=== PATIENT | male | born 1940 | race Caucasian/White ===

== ENCOUNTER 2018-01-17 06:39 | Day surgery (SDC) | payer MEDICARE, SELFPAY ==
[2018-01-16 08:18] VITALS: BP 156/76; PULSE 66; RESP 16; TEMP 36.6; O2SAT 96; BMI 30.2
[2018-01-17] VITALS (7 sets, daily range): BP systolic 141–193; BP diastolic 75–109; PULSE 64–87; RESP 16–20; TEMP 36.4–37.1; O2SAT 94–99; BMI 30.2
[2018-01-17] MEDS: Cefazolin 2 GM in 0.9% Normal Saline 100 ML IV (08:50)
--- NOTE | 2018-01-17 08:50 | BLB_PTH ---
PATIENT: JONY MCKEON [place] [facility] [id number] AGE/SX: 77/M ROOM: RE01/17/[address]: Dr. Ramses You MD : 1940 BED: DIS: 01/17/2018 SPEC #: [id number] RECD: 01/17/18 12:07 STATUS: OLU REMartha #: [id number] ABBY: 01/17/18 08:[address]: Ramses You DEPT: SURGICAL PATHOLOGY RECD BY: Leonard Brown ENTERED: 01/17/18 12:35 SP TYPE: TURB OTHR DR: Dr. Margaret Almendarez MD Tissues: Urinary bladder, NOS Procedures: Surgery Specimen Level V HEADER OPERATION: Transurethral resection bladder, Olympus PRE-OP DIAGNOSIS: Gross hematuria, bladder tumor TISSUE SUBMITTED: Bladder tumor MICROSCOPIC DIAGNOSIS Bladder tumor, TUR: Urothelial carcinoma. See cancer summary below. 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 Lymph-Vascular invasion - not identified Microscopic extent of tumor - suspicious for invasion into the subepithelial connective tissue (lamina propria). Additional pathologic findings - chronic inflammation. - focal calcifications. The above summary is in compliance with [employer] of [place] Path[employer] (CAP) Cancer Protocols Checklist and [place] Joint Committee on Cancer (AJCC), Staging Manual, 8th Ed. SJ:rg 01/20/18 COMMENT Case has been reviewed in consultation with Dr. Ornelas who concurs with the above diagnosis. IDC:AM MICROSCOPIC DESCRIPTION Slides are reviewed. GROSS DESCRIPTION Received in fixative is one container labeled with the patient's name and designated bladder tumor. The specimen consists of multiple irregular fragments of lizarraga, indurated tissue that in aggregate measure 2.5 x 1.5 x 0.3 cm. The specimen is totally submitted in one cassette. / YANY:dottie 01/17/18 TC:0 CPT: 97964
--- NOTE | 2018-01-17 09:53 | DCINST_ITS ---
Discharge Diet: Light diet - advance as tolerated Discharge Activity: Return to Normal Activity Call your doctor if your incision/area has: Continuous Slow Oozing, Sudden Increased Bleeding, Increased Pain/ Swelling, Increased Redness, Foul Smelling Discharge, Swelling at the incision site Call your doctor if you observe: Fever of 101 or Higher Allergies/Adverse Reactions: Allergies No Known Allergies Allergy (Verified 01/16/18 08:18) Medications to take at Discharge Multivit-Min/FA/Lycopen/Lutein [Men 50 Plus Multivitamin Tab] 1 each PO DAILY 01/16/18 [place]-3 Fatty Acids [Fish Oil] 500 mg PO DAILY 01/16/18 Ciprofloxacin [Cipro] 500 mg PO BID #10 tablet 01/17/18 Ibuprofen 600 mg PO Q6H PRN PRN #20 tablet 01/17/18 Primary Care Physician: Margaret Almendarez MD [Primary Care Provider] - Test Results: Test results from this visit will be discussed in further detail at your follow- up appointment, if applicable. Please Follow Up With: Ramses You MD When: in 2 weeks, please call to make an appointment.
--- NOTE | 2018-01-17 09:53 | PCM.OPRPT ---
Report of Operation Date of Procedure: 01/17/18 Pre-Operative Diagnosis: Large bladder mass Post-Operative Diagnosis: Same Surgery/Procedure Performed:: Transurethral resection of a large bladder tumor and instillation of mitomycin-C Description of Surgical Findings:: 77-year-old male taken back to the operating room after smooth induction of general anesthesia he was placed in dorsal lithotomy position the penis and testicles are prepped and draped in usual sterile fashion went into the bladder with a 26 Indonesian continuous flow resectoscope use suction on the resectoscope on inspection of the bladder he had a large tumor in the dome of the bladder and also had extensive amount of tumor carpet throughout the dome of the bladder posterior wall left and right left and right wall, resected this tumor in the dome and then resected and cauterized extensively throughout the posterior wall lateral wall and dome until I got all the tumor cauterized completely and then Ellik out all the chips handed off as specimen, obtained hemostasis, and then placed mitomycin-C into the bladder for chemo wash 40 cc. The patient anesthetic was reversed taken back to PACU in good condition tumor appeared to be high-grade but noninvasive and extensive throughout the posterior wall dome of the left lateral manley of the dome. Type of Anesthesia:: General Drains: none - Admit VTE Documentation VTE Present on Admission: No VTE Mechan Device Prophylaxis: SCD's
[2018-01-17] MEDS: Ketorolac 15 MG/ML Vial IV (11:43)
[2018-01-17] MEDS: Acetaminophen 325 MG Tablet 650 MG PO (11:44)
--- OUTSIDE RECORDS SUMMARY | 2018-03-14 01:03 | XMS RPT_ITS ---
:1940 Author Organization [facility] Care Team Providers Name Role Phone ABDIRIZAK HOWARD Admitting Unavailable ABDIRIZAK HOWARD Attending Unavailable ABDIRIZAK HOWARD Primary Care Unavailable [place]TER[place] MD Consulting Unavailable PROVIDER, UNKNOWN Consulting Unavailable ABDIRIZAK HOWARD Admitting Unavailable ABDIRIZAK HOWARD Attending Unavailable ABDIRIZAK HOWARD Primary Care Unavailable REINA MARTINS MD Referring Unavailable REINA MARTINS MD Consulting Unavailable PROVIDER, UNKNOWN Consulting Unavailable PROVIDER, UNKNOWN Consulting Unavailable PROVIDER, UNKNOWN Consulting Unavailable REINA MARTINS MD Admitting Unavailable REINA MARTINS MD Attending Unavailable REINA MARTINS MD Primary Care Unavailable REINA MARTINS MD Consulting Unavailable PROVIDER, UNKNOWN Consulting Unavailable PROVIDER, UNKNOWN Consulting Unavailable PROVIDER, UNKNOWN Consulting Unavailable REINA MARTINS MD Admitting Unavailable REINA MARTINS MD Attending Unavailable REINA MARTINS MD Primary Care Unavailable REINA MARTINS MD Consulting Unavailable PROVIDER, UNKNOWN Consulting Unavailable PROVIDER, UNKNOWN Consulting Unavailable PROVIDER, UNKNOWN Consulting Unavailable REINA MARTINS MD Admitting Unavailable REINA MARTINS MD Attending Unavailable REINA MARTINS MD Primary Care Unavailable REINA MARTINS MD Consulting Unavailable PROVIDER, UNKNOWN Consulting Unavailable PROVIDER, UNKNOWN Consulting Unavailable PROVIDER, UNKNOWN Consulting Unavailable Ramses You Attending Unavailable Ramses You Referring Unavailable Reina Martins Primary Care Unavailable PROBLEMS PROBLEMS DATE TYPE CONDITION / ATTENDING STATUS SOURCE CODE 12/18/2017 Admitting Gross hematuria REINA MARTINS Active Ed Pomerelinda Diagnosis / R310(ICD-10) [facility] Repository 12/18/2017 Principle Gross hematuria REINA MARTINS Active Ed Pomerelinda Diagnosis / R310(ICD-10) [facility] Repository 06/27/2017 Principle Personal ABDIRIZAK HOWARD Active Ed Pomsvetlana Diagnosis history of [facility] / Repository F26863(ICD-10) PROCEDURES PROCEDURES No Procedure Records FoundRESULTS RESULTS OPERATIVE REPORT Observed: 01/17/2018 Status: F Source: [place] 9:55 AM [facility] [place] [facility] Medical Records Department [address] [place] [address] Operative Report 01/17/18 0953 MR#: [id number] Acct: [id number] Name: ARYA MCKEON Rep #: [id number] : 1940 77 From: Ramses You MD PCP: Reina Martins MD Status: [facility] Y Location: [place] [address] Report of Operation Date of Procedure: 01/17/18 Pre-Operative Diagnosis: Large bladder mass Post-Operative Diagnosis: Same Surgery/Procedure Performed:: Transurethral resection of a large bladder tumor and instillation of mitomycin-C Description of Surgical Findings:: 77-year-old male taken back to the operating room after smooth induction of general anesthesia he was placed in dorsal lithotomy position the penis and testicles are prepped and draped in usual sterile fashion went into the bladder with a 26 Kazakh continuous flow resectoscope use suction on the resectoscope on inspection of the bladder he had a large tumor in the dome of the bladder and also had extensive amount of tumor carpet throughout the dome of the bladder posterior wall left and right left and right wall, resected this tumor in the dome and then resected and cauterized extensively throughout the posterior wall lateral wall and dome until I got all the tumor cauterized completely and then Ellik out all the chips handed off as specimen, obtained hemostasis, and then placed mitomycin-C into the bladder for chemo wash 40 cc. The patient anesthetic was reversed taken back to PACU in good condition tumor appeared to be high-grade but noninvasive and extensive throughout the posterior wall dome of the left lateral manley of the dome. Type of Anesthesia:: General Drains: none - Admit VTE Documentation VTE Present on Admission: No VTE Mechan Device Prophylaxis: SCD's 01/17/18954 <Electronically signed by Ramses You MD> Date Ramses You MD CC: Ramses You MD; Reina Martins MD Signed DISCHARGE INSTRUCTION Observed: 01/17/2018 Status: F Source: [place] 9:53 AM [facility] [place] [facility] Medical Records Department [address] [place] [address] Instructions for Home/Discharge Instructions 01/17/1851 MR#: [id number] Acct: [id number] Name: ARYA MCKEON Rep #: [id number] : 1940 77 From: Ramses You MD PCP: Reina Martins MD Status: REG TXC Discharge Diet: Light diet - advance as tolerated Discharge Activity: Return to Normal Activity Call your doctor if your incision/area has: Continuous Slow Oozing, Sudden Increased Bleeding, Increased Pain/ Swelling, Increased Redness, Foul Smelling Discharge, Swelling at the incision site Call your doctor if you observe: Fever of 101 or Higher Allergies/Adverse Reactions: Allergies No Known Allergies Allergy (Verified 01/16/18 08:18) Medications to take at Discharge Multivit-Min/FA/Lycopen/Lutein [Men 50 Plus Multivitamin Tab] 1 each PO DAILY 01/16/18 [place]-3 Fatty Acids [Fish Oil] 500 mg PO DAILY 01/16/18 Ciprofloxacin [Cipro] 500 mg PO BID #10 tablet 01/17/18 Ibuprofen 600 mg PO Q6H PRN PRN #20 tablet 01/17/18 Primary Care Physician: Reina Martins MD [Primary Care Provider] - Test Results: Test results from this visit will be discussed in further detail at your follow-up appointment, if applicable. Please Follow Up With: Ramses You MD When: in 2 weeks, please call to make an appointment. 01/17/18 0953 <Electronically signed by Ramses You MD> Date Ramses You MD CC: Reina Martins MD BLADDER TUR Observed: 01/17/2018 Status: F Source: [place] 8:50 AM [facility] [place] Patient: ARYA MCKEON : 1940 (77/M) Acct Num: [id number] Phys: Kenyatta CUI,Ramses Wills Unit Num: [id number] [place] [facility] [place] Specimen: [id number] Received: 01/17/18 - 1207 Spec Type: TURB TISSUES 1 TISSUES: Urinary bladder, NOS COMMENT Case has been reviewed in consultation with Dr. Ornelas who concurs with the above diagnosis. IDC:AM GROSS DESCRIPTION Received in fixative is one container labeled with the patient's name and designated bladder tumor. The specimen consists of multiple irregular fragments of lizarraga, indurated tissue that in aggregate measure 2.5 x 1.5 x 0.3 cm. The specimen is totally submitted in one cassette. / SJ:rg 01/17/18 TC:0 CPT: 96313 HEADER OPERATION: Transurethral resection bladder, Olympus PRE-OP DIAGNOSIS: Gross hematuria, bladder tumor TISSUE SUBMITTED: Bladder tumor MICROSCOPIC DESCRIPTION Slides are reviewed. MICROSCOPIC DIAGNOSIS Bladder tumor, TUR: Urothelial carcinoma. See cancer summary below. 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 Lymph-Vascular invasion - not identified Microscopic extent of tumor - suspicious for invasion into the subepithelial connective tissue (lamina propria). Additional pathologic findings - chronic inflammation. - focal calcifications. The above summary is in compliance with [employer] [place] Path[employer] (CAP) Cancer Protocols Checklist and [place] Joint Committee on Cancer (AJCC), Staging Manual, 8th Ed. SJ:dottie 01/20/18 Signed Wagner Neves 01/20/18 <signature on file> Performed By: #### PBLB #### [facility] [address] [place], [address] CT ABDOMEN/PELVIS W/WO Observed: 12/31/2017 Status: F Source: [facility] 2:[address] [address] Patient: ARYA MCKEON Phone#: : 1940 Age: 77 Gender: M Pt. Type: Out Account: [id number] Location: 2 Ordering: REINA MARTINS Exam Date: 12/31/2017/14:26 Family Phys: Charge Code: [id number] Physician: [facility] Order #: [id number] DLP Dose#: PROCEDURE: CT ABDOMEN/PELVIS WITH AND WITHOUT CONTRAST COMPARISON: None. INDICATIONS: Gross hematuria TECHNIQUE: After obtaining the patient's consent, CT images of the abdomen were created with oral contrast and without and with non- ionic intravenous contrast material, and CT images of the pelvis were obtained with non-ionic intravenous contrast material. All CT scans at this facility use dose modulation, iterative reconstruction, and/or weight based dosing when appropriate to reduce radiation dose to as low as reasonably achievable. IV CONTRAST: Omnipaque 350,80ml TOTAL DOSE: 25.80 CTDIvol(mGy) FINDINGS: LIVER: There are numerous cysts throughout the liver, at least 11, the largest is in the left lobe and measures 5.1 x 5.6 cm. There are additional low attenuation lesions which are too small to characterize. No enlargement, atrophy, or significant focal lesion. BILIARY: The gallbladder is present. PANCREAS: There is mild pancreatic atrophy. SPLEEN: Normal. No enlargement or focal lesion. KIDNEYS: The kidneys enhance and excrete contrast symmetrically. No hydronephrosis. ADRENALS: Normal. No mass or enlargement. AORTA/VASCULAR: No aortic aneurysm. There are scattered atherosclerotic calcifications of the aorta and branch vessels. RETROPERITONEUM: There is a nonspecific small left periaortic calcification measuring 1.2 cm. No adenopathy. BOWEL/MESENTERY: There is a small hiatal hernia. No bowel obstruction or dilatation. Oral contrast reaches the rectum. There is diverticulosis of the sigmoid and descending colon. The appendix is unremarkable in size. Continued Report - Page 2 of 2 Patient: ARYA MCKEON Phone#: : 1940 Age: 77 Gender: M Pt. Type: Out Account: [id number] Location: [facility] Ordering: REINA MARTINS Exam Date: 12/31/2017/14:26 Family Phys: Charge Code: [id number] Physician: [facility] Order #: [id number] DLP Dose#: ABDOMINAL WALL: Normal. No mass or hernia. URINARY BLADDER: At the left dome of the bladder there is an enhancing mass extending into the bladder lumen, the mass measures 1.6 x 1.8 x 1.3 cm. There is thickening of the adjacent bladder wall. Percontrast exam demonstrates very subtle calcification along the margins of the mass. PELVIC NODES: Normal. No adenopathy. PELVIC ORGANS: The prostate indents the base of the bladder, it measures 4.1 x 4.4 x 6.0 cm BONES: There are degenerative changes in the lower thoracic spine with anterior osteophyte formation. The speculum disc phenomenon and disc height loss at L3-4, L4-5 and L5-S1 LUNG BASES: Normal. No visible pulmonary or pleural disease. OTHER: Negative. CONCLUSION: 1. Bladder mass. It should be considered malignancy until proven otherwise, recommend urologic workup. 2. Diverticulosis. Dictated by: Isabel Thompson MD on 12/31/2017 at 18:38 Approved by: Isabel Thompson MD on 12/31/2017 at 18:49 CREATININE Collected: 12/18/2017 Status: F Source: [facility] [place] 2:11 PM [facility] REPOSITORY TYPE CODE TESTS RESULT OUT OF REFERENCE UNITS RANGE LAB CREATININE 0.7 - 1.3 mg/dl (LOINC) CREATININE 1.0 Performed By: #### [id number] #### [facility],[address] [place] [address] OPERATIVE PROCEDURES Observed: 07/08/2017 Status: F Source: [facility] 3:45 PM [facility] REPOSITORY [facility] OPERATIVE REPORT NAME ACCOUNT SEX AGE ADMIT DISCHARGE PT MED. RECORD# NUMBER DATE DATE TYPE LINDA, [id number] M 76 07/08/17 2 ARYA Goel [address] ROOM: [facility] DATE OF : 1940 DICTATING PHYSICIAN: Abdirizak Howard DATE OF SURGERY: July 08, 2017 SURGEON: Abdirizak Howard MD FIRER TUNNEL KILN: ANESTHESIOLOGIST: Catina Paulson CRNA/Destiny Ba MD ANESTHETIC: PREOPERATIVE DIAGNOSIS: POSTOPERATIVE DIAGNOSES: Diverticulosis, polyps, and hemorrhoids. OPERATION PERFORMED: Colonoscopy with biopsy and polypectomy. COMPLICATIONS: ESTIMATED BLOOD LOSS: Minimal. SPECIMEN: Biopsy/polyps at 10 cm sent to pathology. DISPOSITION: Stable to recovery. INDICATIONS: Arya Mckeon is a 76-year-old gentleman who has a prior history of colonic polyps. DESCRIPTION OF OPERATION: After informed consent, was brought to endoscopy, placed in padded gurney in left lateral decubitus position with adequate padding at pressure points and timeout verification done. He was given sedation per Anesthesia with monitoring throughout. Digital examination showed some external hemorrhoidal tags, normal tone, small internal tags. Prostate is somewhat enlarged, but I could not palpate any discrete nodules. The Olympus flexible endoscope was advanced through the anal verge and into the rectal vault and then through the very tortuous sigmoid colon. There are scattered diverticula. The scope was advanced through the descending colon, beyond the splenic flexure, transverse colon, hepatic flexure, Page 1 of 2 ARYA MCKEON Operative Report ascending colon toward the ileocecal junction where the landmarks noted. The prep was fair. Scope was rotated with irrigation, suctioning and back and forth movement and then withdrawn. The cecum and ascending colon were carefully viewed. The transverse colon and descending colon were carefully viewed. The scope was withdrawn down through the sigmoid into the rectal vault careful rotation, irrigation, back and forth movement. There were 3 separate polyps noted in the colonic rectal vault at about 10 cm. These were biopsied with the cold forceps standard technique, and there was good hemostasis. The scope was retroflexed, rotated, straightened out, and withdrawn with decompression. There are some internal and external hemorrhoids, but there is no tear, no fissure, no fungating mass, and no other worrisome lesion is found. The patient tolerated the procedure well, and will be sent to recovery in stable condition. The case will be discussed with the patient and the family when the patient is more awake. Dictated By: Abdirizak Howard MD 07/08/17 11:17 JOB #: [id number] Transcribed By: am 07/08/17 12:06 Electronically signed by: E-Sign Dr. Abdirizak Howard MD 07/08/17 15:44 Page 2 of 2 PIPES, ARYA Goel Operative Report FINAL SURGICAL Observed: 07/08/2017 Status: F Source: [facility] PATHOLOGY REPORT 8:25 AM [facility] [place] REPOSITORY . Pathology Reports Accession: Collected Date/Time: Received Date/Time: Pathologist: [id number] 07/08/2017 08:25 EDT 07/09/2017 08:25 EDT MD KELL MON Final Surgical Pathology Report DIAGNOSIS: COLON, @ 10 CM, BIOPSY: - HYPERPLASTIC POLYP . COMMENT: [facility]# [id number] CLINICAL INFORMATION: LOWER GI SCREENING SPECIMEN: A COLON, BX - @ 10 CM. GROSS DESCRIPTION: Received in formalin labeled 10 cm are several lizarraga glistening soft tissues ranging from 0.3-0.5 cm. TS -1 Dictated by KELLEY SELBY ([facility]) MICROSCOPIC DESCRIPTION: Slides reviewed. Electronically Signed by Pathology Report verified by [facility] Electronically signed by KELL MON MD Sign out Date: 07/10/2017 15:34 Performing Lab: [facility], [address] [place] [address] Performed By: #### SPFR #### [place] [address] ALLERGIES ALLERGIES DATE TYPE / CODE NAME / CODE REACTION SEVERITY SOURCE 01/16/2018 Drug No Known Unknown Anabella Allergy/504410902(S Allergies/F0019 [facility] [place]) [address](RXNORM) Hospital Repository Miscellaneous No Known Drug Moderate Ed Pomerene Allergy/096120684(S Allergies ([facility]) Modifier) Hospital (Qualifier Repository Value) ENCOUNTERS ENCOUNTERS ADMIT/DISCHARGE ACCOUNT ADMITTING ENCOUNTER LOCATION SOURCE NUMBER CLASS 01/17/2018/ [id number] Amb[place] 8 9 [facility] ing:SD Repository 01/01/2018 [id number] Rama MARTINS Ed Pomerene REINA CUI [facility] Repository 12/31/2017/ [id number] Rama MARTINS Ed [place] 8 REINA CUI [facility] Repository 12/18/2017/ [id number] LAKSHMI [facility] Ed Pomerelinda [address] [facility] Repository 07/08/2017/ [id number] ABDIRIZAK HOWARD Ambulatory BuildinR Ed Pomerene 8 oom: AMB4 [facility] Repository 06/27/2017/ [id number] ABDIRIZAK HOWARD Ambulatory Ed [address] Repository PAYERS PAYERS ENCOUNTER GUARANTOR PAYER SUBSCRIBER SOURCE 01/17/2018 ARYA R Primary ARYA R [place] [id number] Insurance:HUMANA PIPESDOB: Community [id number] Repository [address]Xls: 330 [id number] [phone] (HP) Date:[id number] [address]KP: 01/17/2018 Secondary NOT GIVENUNK [place] Insurance:SELF PAY [facility] Number: Effective Repository Date:2018-01-06 01/01/2018 ARYA R Primary ARYA R Ed [place] PIPESDOB: Insurance:HUMANA GOLD PIPESDOB: [facility] [id number] [facility] [id number] [place] [address] Repository [place] Number: [place], [place] [address]Yay: [phone] [id number] [phone] () Date:Plan Name:[facility] [address] [place] [address] [id number]: 12/31/2017 ARYA R Primary ARYA R Ed [place] PIPESDOB: Insurance:HUMANA GOLD PIPESDOB: [facility] [id number] [address] Repository [place] Number: [place] [id number]: 330 [id number] [phone] () Date:Plan Name:[address] [id number]: 12/18/2017 ARYA R Primary ARYA R Ed [place] PIPESDOB: Insurance:HUMANA GOLD PIPESDOB: [facility] [id number] [place] [address] Repository [place] Number: [place] [id number]: ([phone] [id number] [phone] () Date:Plan Name:[address] [id number]: 07/08/2017 ARYA R Primary ARYA R Ed [place] PIPESDOB: Insurance:HUMANA GOLD PIPESDOB: [facility] [id number] [address] Repository [place] Number: [place] [id number]: ([phone] [id number] [phone] () Date:Plan Name:[address] [id number]: 06/27/2017 ARYA R Primary ARYA R Ed [place] PIPESDOB: Insurance:HUMANA GOLD PIPESDOB: [facility] [id number] [address] Repository [place]: [place] [id number]: ([phone] [id number] [phone] () Date:Rula [place]ANC [address], [place] [id number]:
== END 2018-01-17 13:15 | disposition home or self-care (01) ==
LOC: SDC 06:40 → AC 06:41
PROVIDERS: Family Provider Internal Medicine; PCP Internal Medicine; Referring Provider Urology; Visit Provider Urology
PROC: 0TBB8ZZ Excision of Bladder, Via Natural or Artificial Opening Endoscopic (ICD-10-PCS; CPT 51720; principal; 2018-01-17 08:40)
DX: C67.8 Malignant neoplasm of overlapping sites of bladder (principal); N30.21 Other chronic cystitis with hematuria; Z86.010 Personal history of colon polyps; Z87.891 Personal history of nicotine dependence
CPT/HCPCS: 51720; 52240; 88307; J7120; J2405; J3490; J9280

== ENCOUNTER → 2018-04-22 10:29 | Outpatient (CLI) | payer MEDICARE, SELFPAY ==
[2018-01-17 07:14] VITALS: BMI 30.2
== END ==
PROVIDERS: Family Provider Internal Medicine; PCP Internal Medicine; Referring Provider Nurse Practitioner Adult Health; Visit Provider Nurse Practitioner Adult Health
DX: N39.0 Urinary tract infection, site not specified (principal)
CPT/HCPCS: 87077; 87086; 87088

== ENCOUNTER → 2018-07-07 10:12 | Outpatient (CLI) | payer MEDICARE, SELFPAY ==
[2018-01-17 07:14] VITALS: BMI 30.2
--- NOTE | 2018-07-07 | CYSPIN_PTH ---
PATIENT: JONY MCKEON LOC: [facility] U#:[id number] AGE/SX: 84/M ROOM: RE07/07/[address]: Dr. Ramses You MD : 1940 BED: DIS: SPEC #: [id number] RECD: 07/07/18 09:30 STATUS: OLU JEANNETTE #: [id number] ABBY: 07/07/18 00:[address]: Ramses You DEPT: CYTOLOGY RECD BY: Albino Arceo ENTERED: 07/08/18 10:00 SP TYPE: CYSPIN FL OTHR DR: Dr. Margaret Almendarez MD Tissues: Urine Procedures: Pap Stain (control) Special Stain Group II Cytospin Fluid HEADER OPERATION: Not noted PRE-OP DIAGNOSIS: Hematuria R31.9 TISSUE SUBMITTED: Urine for cytology DIAGNOSIS CYTOLOGY Urine for cytology (cytospin): Atypical urothelial cells present. See comment. Marked acute inflammation. AM:dottie 07/09/18 COMMENT The findings are nonspecific and could represent a variety of conditions including infection, urolithiasis, instrumentation and low grade urothelial neoplasm. Clinical correlation is necessary. CYTOLOGY STUDY Slides are reviewed. CYTOLOGY GROSS Received is 20 ml of gold cloudy fluid labeled with the patient's name and and designated per the requisition as urine. Submitted for cytology preparation. / 07/08/18 TC:? CPT: 60367
[2018-07-07 10:52] LABS: Absolute Lymphocyte Count 1.62 X10^3/ul (0.83-4.51); Absolute Neutrophil Count 3.2 X10^3/uL (2.0-7.7); Basophil# 0.01 X10^3/uL; Basophil% 0.2 % (0-1); Eosinophil# 0.13 X10^3/uL; Eosinophils% 2.2 % (0-5); Hematocrit 43.7 % (40-54); Hemoglobin 14.1 g/dl (13.0-16.5); Lymphocyte # 1.62 X10^3/ul (4.0); Mean Corp Hgb Conc 32.3 g/gl (32-36); Mean Corpuscular Hgb 26.5 pg (27.0-32.0); Mean Platelet Vol. 10.3 fl (6.2-12.0); Monocyte# 0.78 X10^3/uL; Monocyte% 13.5 % (0-10); Neutrophil # 3.23 X10^3/uL (2.7-7.7); Neutrophil % 55.9 % (47-70); Platelet Count 274 K/mm3 (150-450); RBC Distribution Width CV 14.5 % (11.6-14.6); RBC Distribution Width SD 43.2 fl (35.1-43.9); Red Blood Count 5.33 M/mm3 (4.6-6.2); White Blood Count 5.8 K/mm3 (4.4-11.0)
[2018-07-07 10:54] LABS: POSITIVE COUNT NO; POSITIVE DIFFERENTIAL NO; POSITIVE MORPHOLOGY NO
[2018-07-07 11:18] LABS: Anion Gap 4 (5-15); BUN 15 mg/dL (7-18); BUN/Creat Ratio 14.9 RATIO (10-20); Calcium,Total 9.1 mg/dL (8.5-10.1); Chloride 110 mmol/L (98-107); Creatinine, Serum 1.01 mg/dL (0.70-1.30); EST Glomerular Filtration Rate 76 mL/min (>60); Est Glom Filt Rate - Afr Amer 92 mL/min (>60); Glucose 101 mg/dL (74-106); Potassium 4.1 mmol/L (3.5-5.1); Sodium Level 144 mmol/L (136-145)
[2018-07-07 17:28] LABS: Cytology, Body Fluid / CSF SEE PATHOLOGY REPORT
== END ==
PROVIDERS: Family Provider Internal Medicine; PCP Internal Medicine; Referring Provider Urology; Visit Provider Urology
DX: Z01.812 Encounter for preprocedural laboratory examination (principal); R31.9 Hematuria, unspecified; K57.30 Diverticulosis of large intestine without perforation or abscess without bleeding; C67.2 Malignant neoplasm of lateral wall of bladder
CPT/HCPCS: 36415; 80048; 85025; 88108; 88313

== ENCOUNTER → 2018-07-18 16:01 | Outpatient (CLI) | payer MEDICARE, SELFPAY ==
[2018-01-17 07:14] VITALS: BMI 30.2
--- NOTE | 2018-07-18 | IMM_PTH ---
PATIENT: JONY MCKEON LOC: [facility] U#:[id number] AGE/SX: 84/M ROOM: RE07/18/[address]: Dr. Ramses You MD : 1940 BED: DIS: SPEC #: [id number] RECD: 07/22/18 13:36 STATUS: OLU REQ #: [id number] ABBY: 07/18/18 00:[address]: Ramses You DEPT: IMMUNOHISTOCHEMISTRY RECD BY: Krupa Castro ENTERED: 07/22/18 13:37 SP TYPE: IMMUNO OTHR DR: Dr. Margaret Almendarez MD Tissues: B - Urinary bladder, NOS Procedures: CK20 (add) CK5-6 (add) CK7 (add) CK8 (add) Pankeratin (initial) P40 (add) CD44 (add) PHYSICIAN & INSTITUTION [place] [id number] SPECIMEN INFORMATION: Tissue Source: B - Urinary bladder, posterior wall, biopsy Clinical Info: Malignant neoplasm of lateral wall bladder Specimen Number: [id number] CPT code: 04451, 69032 x6 METHODOLOGY: Deparaffinized sections of prefer/formalin-fixed tissue or PAP/DQ stained slides are incubated with monoclonal/polyclonal antibodies/oligonucleotide probes. Localization is made via biotin free immunoperoxidase method. Appropriate controls are performed and reacted as expected. Results on target cell population are indicated in the following table: RESULTS: ANTIBODY / CLONE RESULT Block B AE1-3 (AE1/AE3/PCK26) positive CK7 (OV-TL12/30) positive CK8 (33rhkvG27) positive CK20 (KS20.8) positive, focal P40 (BC28) positive anti-CD44 (SP37) positive CK5-6 (D5 & 1684) positive These tests were developed and their performance characteristics determined by [facility]. They may not have been cleared or approved by the U.S. Food and Drug Administration. The FDA has determined that such clearance or approval is not necessary. INTERPRETATION: B. Urinary bladder, posterior wall, biopsy: Focal atypical urothelium. AM:dottie 07/23/18
--- NOTE | 2018-07-18 09:04 | BLA_PTH ---
PATIENT: JONY MCKEON LOC: [facility] U#:[id number] AGE/SX: 84/M ROOM: RE07/18/[address]: Dr. Ramses You MD : 1940 BED: DIS: SPEC #: [id number] RECD: 07/18/18 15:40 STATUS: OLU MACHADO #: [id number] ABBY: 07/18/18 09:[address]: Ramses You DEPT: SURGICAL PATHOLOGY RECD BY: Samira Weiss ENTERED: 07/21/18 08:46 SP TYPE: BLADDER BX OTHR DR: Dr. Margaret Almendarez MD [place] Tissues: A - Urinary bladder, NOS B - Urinary bladder, NOS Procedures: Surgery Specimen Level IV HEADER OPERATION: Cystoscopy, bladder biopsy PRE-OP DIAGNOSIS: Malignant neoplasm of lateral wall bladder, frequency micturition TISSUE SUBMITTED: A. Superficial layer, B. Posterior wall MICROSCOPIC DIAGNOSIS A. Urinary bladder, superficial layer, biopsy: Detached atypical urothelial cells with associated dystrophic microcalcifications. B. Urinary bladder, posterior wall, biopsy: Minute urinary bladder tissue with atypical urothelium and chronic cystitis. Dystrophic microcalcifications. See comment. AM:dottie 07/22/18 COMMENT B. Immunohistochemistry ([id number]) supports the above diagnosis. The tissue is minute, fragmented and exhausted on sectioning. Detrusor muscle is not present in the biopsy. Clinical correlation is suggested. Case has been reviewed in consultation with Dr. Neves who concurs with the above diagnosis. IDC:SJ MICROSCOPIC DESCRIPTION Slides are reviewed. GROSS DESCRIPTION A - Received in fixative is one container labeled with the patient's name and designated superficial layer. The specimen consists of multiple irregular fragments of light lizarraga soft tissue that in aggregate measure 0.7 x 0.2 x 0.1 cm. The specimen is totally submitted in one cassette. B - Received in fixative is one container labeled with the patient's name and designated posterior wall. The specimen consists of multiple irregular fragments of light lizarraga soft tissue that in aggregate measure 0.5 x 0.2 x 0.1 cm. The specimen is totally submitted in one cassette. / AM:dottie 07/21/18 TC:? CPT: 43230 x2
== END ==
PROVIDERS: Family Provider Internal Medicine; PCP Internal Medicine; Referring Provider Urology; Visit Provider Urology
DX: C67.2 Malignant neoplasm of lateral wall of bladder (principal); R35.0 Frequency of micturition
CPT/HCPCS: 88305; 88341; 88342

== ENCOUNTER → 2019-07-16 | Outpatient (CLI) | payer MEDICARE, SELFPAY ==
[2018-01-17 07:14] VITALS: BMI 30.2
--- NOTE | 2019-07-16 | CYSPIN_PTH ---
PATIENT: JONY MCKEON LOC: [facility] U#:[id number] AGE/SX: 78/M ROOM: RE07/16/[address]: Dr. Ramses You MD : 1940 BED: DIS: 07/16/2019 SPEC #: [id number] RECD: 07/17/19 10:50 STATUS: OLU REMartha #: [id number] ABBY: 07/16/19 00:[address]: Ramses You DEPT: CYTOLOGY RECD BY: Heber Harrington ENTERED: 07/17/19 10:50 SP TYPE: CYSPIN FL OTHR DR: Dr. Margaret Almendarez MD Tissues: Urine Procedures: Pap Stain (control) Special Stain Group II Cytospin Fluid HEADER OPERATION: Not noted PRE-OP DIAGNOSIS: Malignant neoplasm of lateral wall of bladder TISSUE SUBMITTED: Urine for cytology DIAGNOSIS CYTOLOGY Urine for cytology (cytospin): Degenerating urothelial cells with mild atypia. 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 CYTOLOGY STUDY Slides are reviewed. CYTOLOGY GROSS Received is 20 ml of gold cloudy fluid labeled with the patient's name and and designated per the requisition as urine. Submitted for cytology preparation. / dottie 07/17/19 TC:? CPT: 52803
[2019-07-16 17:18] LABS: Cytology, Body Fluid / CSF SEE PATHOLOGY REPORT
== END | disposition home or self-care (01) ==
LOC: LABSPEC 16:56
PROVIDERS: PCP Internal Medicine; Referring Provider Urology; Visit Provider Urology
DX: C67.2 Malignant neoplasm of lateral wall of bladder (principal)
CPT/HCPCS: 88108; 88313

== ENCOUNTER → 2019-10-29 | Outpatient (CLI) | payer MEDICARE, SELFPAY ==
[2018-01-17 07:14] VITALS: BMI 30.2
--- NOTE | 2019-10-29 | FLU_PTH ---
PATIENT: JONY MCKEON LOC: [facility] U#:[id number] AGE/SX: 79/M ROOM: RE10/29/[address]: Dr. Ramses You MD : 1940 BED: DIS: 10/29/2019 SPEC #: [id number] RECD: 10/29/19 10:00 STATUS: OLU JEANNETTE #: [id number] ABBY: 10/29/19 00:[address]: Ramses oYu DEPT: CYTOLOGY RECD BY: Samira Weiss ENTERED: 10/29/19 13:28 SP TYPE: Fluid OTHR DR: Dr. Margraet Almendarez MD Tissues: Urine Procedures: Special Stain Group II Cytospin Fluid HEADER OPERATION: Not noted PRE-OP DIAGNOSIS: History of malignant neoplasm of bladder TISSUE SUBMITTED: Urine for cytology DIAGNOSIS CYTOLOGY Urine for cytology (cytospin): Negative for malignant cells. AM:dottie 9/11/20 CYTOLOGY STUDY Slides are reviewed. CYTOLOGY GROSS Received is 40 ml of yellow hazy fluid labeled with the patient's name and and designated per the requisition as urine. Submitted for cytology preparation. / dottie 10/29/19 TC:5 CPT: 91124
[2019-10-29 10:50] LABS: Cytology, Body Fluid / CSF SEE PATHOLOGY REPORT
== END | disposition home or self-care (01) ==
LOC: LABSPEC 10:40
PROVIDERS: PCP Internal Medicine; Referring Provider Urology; Visit Provider Urology
DX: Z85.51 Personal history of malignant neoplasm of bladder (principal)
CPT/HCPCS: 88108; 88313

== ENCOUNTER 2020-04-18 09:40 | Outpatient (RCR) | payer MEDICARE, SELFPAY ==
[2018-01-17 07:14] VITALS: BMI 30.2
== END 2020-04-18 23:59 ==
LOC: IMMUN 09:40
PROVIDERS: PCP Internal Medicine; Visit Provider Family Medicine
DX: Z23 Encounter for immunization (principal)
CPT/HCPCS: 0011A; 0012A

== ENCOUNTER → 2020-04-28 | Outpatient (CLI) | payer MEDICARE, SELFPAY ==
[2018-01-17 07:14] VITALS: BMI 30.2
--- NOTE | 2020-04-28 08:50 | CYSPIN_PTH ---
PATIENT: JONY MCKEON LOC: [facility] U#:[id number] AGE/SX: 79/M ROOM: RE04/28/[address]: Dr. Ramses You MD : 1940 BED: DIS: 04/28/2020 SPEC #: [id number] RECD: 04/29/20 08:17 STATUS: OLU REQ #: [id number] ABBY: 04/28/20 08:[address]: Ramses You DEPT: CYTOLOGY RECD BY: Aruna George ENTERED: 04/29/20 08:17 SP TYPE: CYSPIN FL OTHR DR: Dr. Margaret Almendarez MD Tissues: Urine Procedures: Pap Stain (control) Special Stain Group II Cytospin Fluid HEADER OPERATION: Not noted PRE-OP DIAGNOSIS: Bladder carcinoma TISSUE SUBMITTED: Urine for cytology DIAGNOSIS CYTOLOGY Urine for cytology (cytospin): Rare atypical urothelial cells present. COMMENT Case has been reviewed in consultation with Dr. Neves who concurs with the above diagnosis. IDC:SJ CYTOLOGY STUDY Slides are reviewed. CYTOLOGY GROSS Received is 20 ml of dark yellow cloudy fluid labeled with the patient's name and and designated per the requisition as urine. Submitted for cytology preparation. / dottie 04/29/20 TC:? CPT: 47058
[2020-04-28 15:44] LABS: Cytology, Body Fluid / CSF SEE PATHOLOGY REPORT
== END | disposition home or self-care (01) ==
LOC: LABSPEC 10:53
PROVIDERS: PCP Internal Medicine; Visit Provider Urology
DX: C67.2 Malignant neoplasm of lateral wall of bladder (principal)
CPT/HCPCS: 88108; 88313

== ENCOUNTER 2021-04-28 09:08 | Outpatient (CLI) | payer MEDICARE, SELFPAY ==
[2021-04-28 10:46] LABS: Erythrocyte Sedimentation Rate 1 mm/hr (0-20)
[2021-04-28 10:49] LABS: Absolute Lymphocyte Count 1.54 X10^3/uL (0.83-4.51); Absolute Neutrophil Count 3.2 X10^3/uL (2.0-7.7); Basophil# 0.03 X10^3/uL; Basophil% 0.5 % (0-1); Eosinophil# 0.12 X10^3/uL; Eosinophils% 2.1 % (0-5); Hematocrit 46.6 % (40-54); Hemoglobin 14.7 g/dL (13.0-16.5); Lymphocyte # 1.54 X10^3/ul (0.83-4.51); Lymphocyte % 27.5 % (19-41); Mean Corp Hgb Conc 31.5 g/dL (32-36); Mean Corpuscular Hgb 26.6 pg (27.0-32.0); Mean Corpuscular Volume 84.3 fL (80-94); Mean Platelet Vol. 10.5 fl (6.2-12.0); Monocyte# 0.66 X10^3/uL; Monocyte% 11.8 % (0-10); NRBC Flagged by Analyzer 0 % (0-5); Neutrophil # 3.23 X10^3/uL (2.7-7.7); Neutrophil % 57.7 % (47-70); Platelet Count 305 K/mm3 (150-450); RBC Distribution Width CV 13.4 % (11.6-14.6); RBC Distribution Width SD 41.6 fl (35.1-43.9); Red Blood Count 5.53 M/mm3 (4.6-6.2); White Blood Count 5.6 K/mm3 (4.4-11.0)
[2021-04-28 11:00] LABS: Hemoglobin A1c 5.8 % (3.8-5.6)
[2021-04-28 11:27] LABS: Vitamin B12 522 pg/mL (211-911); Vitamin D,25 Hydroxy 34.1 ng/mL
[2021-04-28 11:56] LABS: ALB/GLOB Ratio 1.3 RATIO (0.9-2.4); AST(SGOT) 14 U/L (15-37); Alanine Aminotransfer ALT/SGPT 26 U/L (16-61); Alkaline Phosphatase 78 U/L (45-117); Anion Gap 3 (5-15); BUN 17 mg/dL (7-18); BUN/Creat Ratio 17.3 RATIO (10-20); CRP < 2.90 mg/L (0.0-3.0); Calcium,Total 9.4 mg/dL (8.5-10.1); Chloride 108 mmol/L (98-107); Creatinine, Serum 0.98 mg/dL (0.70-1.30); EST Glomerular Filtration Rate 78 mL/min (>60); Est Glom Filt Rate - Afr Amer 94 mL/min (>60); Free T3 3.2 pg/mL (2.18-3.98); Globulin 3.1 g/dL (2.2-4.2); Glucose 102 mg/dL (74-106); Magnesium 2.2 mg/dL (1.6-2.6); Potassium 4.4 mmol/L (3.5-5.1); Protein, Total 7.1 g/dL (6.4-8.2); Sodium Level 141 mmol/L (136-145); T4 Free Direct 0.92 ng/dL (0.76-1.46); T4 Total, Thyroxin 6.3 ug/dL (4.5-12.1); Thyroid Stim Hormone (TSH) 2.24 uIU/mL (0.358-3.74)
== END 2021-04-28 23:59 | disposition home or self-care (01) ==
LOC: LAB 09:15
PROVIDERS: PCP Internal Medicine; Referring Provider Student in an Organized Health Care Education/Training Program; Visit Provider Student in an Organized Health Care Education/Training Program
DX: G60.9 Hereditary and idiopathic neuropathy, unspecified (principal)
CPT/HCPCS: 36415; 80053; 82306; 82607; 82746; 83036; 83735; 84436; 84439; 84443; 84481; 85025; 85652; 86140

== ENCOUNTER 2021-05-29 06:39 | Outpatient (CLI) | payer MEDICARE, SELFPAY ==
--- NOTE | 2021-05-29 09:04 | NEURO ---
NCS and/or EMG Patient Report Ordering Doctor: Cash Mckeon DATE OF SERVICE: 05/29/21 Indication: Numbness and coldness involving both feet. Symptoms are most notable at night while trying to sleep. The feeling has been present for years, but seems worse of late. The sensory disturbance is symmetric. Evaluate for peripheral polyneuropathy. Findings: Nerve conduction studies were performed in the right and left lower extremities. The right peroneal motor study recording the extensor digitorum brevis showed a borderline amplitude, normal distal latency and normal conduction velocity. No conduction block or focal slowing was present across the fibular neck. The right tibial motor study recording the abductor hallucis brevis showed a normal amplitude, normal distal latency and borderline conduction velocity. The right sural sensory response showed a normal amplitude and mildly reduced conduction velocity. The right superficial peroneal sensory response showed a normal amplitude and mildly reduced conduction velocity. The right medial plantar sensory response showed a normal amplitude and mildly reduced conduction velocity. The left peroneal motor study recording the extensor digitorum brevis showed a normal amplitude, normal distal latency and normal conduction velocity. No conduction block or focal slowing was present across the fibular neck. The left tibial motor study recording the abductor hallucis brevis showed a normal amplitude, normal distal latency and borderline conduction velocity. The left sural sensory response showed a normal amplitude and reduced conduction velocity. The left superficial peroneal sensory response showed a normal amplitude and mildly reduced conduction velocity. The left medial plantar sensory response showed a normal amplitude and conduction velocity. Needle EMG of the left lower extremity and paraspinal muscles was performed. No denervation was present in any muscle. Motor unit morphology, activation, and recruitment patterns were normal. Needle EMG of the right lower extremity was omitted given the symmetry of the patient's symptoms and the paucity of findings on the left. Impression: This is a borderline study. There is no definitive electrophysiologic evidence of a large fiber peripheral polyneuropathy. The diffusely borderline/slow sensory velocities are likely a reflection of cool limb temperature. In addition, there was no electrophysiologic evidence of lumbar radiculopathy in the left lower extremity. Please note: routine nerve conduction studies and needle EMG assess the larger, myelinated motor and sensory fibers. Thus, routine electrodiagnostic studies may be insensitive in detecting a peripheral neuropathy restricted to small fibers alone (i.e., pain, temperature and autonomic fibers). However, most peripheral neuropathies with predominantly small fiber large dysfunction will also involve large fibers to a lesser extent, and will demonstrate abnormalities on electrodiagnostic studies. Thus, clinical correlation is required in the interpretation of this negative electrodiagnostic study if an isolated small fiber neuropathy is considered. Bonilla Sebastian D.O. Multi Select Codes Neurology Neurology Interp Codes: 74193-85 Musc test done w/n test comp (interp) and 63668-21 Nrv cndj test 9-10 studies (interp)
== END 2021-05-29 23:59 | disposition home or self-care (01) ==
LOC: PSN 06:40
PROVIDERS: PCP Internal Medicine; Referring Provider Student in an Organized Health Care Education/Training Program; Visit Provider Student in an Organized Health Care Education/Training Program
DX: G60.9 Hereditary and idiopathic neuropathy, unspecified (principal)
CPT/HCPCS: 95886; 95911

== ENCOUNTER → 2023-09-19 | Outpatient (CLI) | payer MEDICARE, SELFPAY ==
--- NOTE | 2023-09-19 06:49 | CT_ITS ---
STUDY: CT MAXILLOFACIAL SINUSES REASON FOR EXAM: Male, 82 years old. Chronic sinusitis, drainage RADIATION DOSAGE (If Supplied By Facility): CTDIvol = ( 33.06 ) mGy, DLP = ( 804.92 ) mGycm TECHNIQUE: The patient was scanned in a multi detector CT scanner. High resolution axial imaging was performed without the administration of intravenous contrast material. Sagittal and coronal images were reconstructed. Individualized dose optimization techniques were used for this CT. COMPARISON: None. FINDINGS: FRONTAL SINUSES: Normal aeration, without mucosal inflammatory disease. ETHMOIDAL SINUSES: Normal aeration, without mucosal inflammatory disease. MAXILLARY SINUSES: Normal aeration, without mucosal inflammatory disease. SPHENOIDAL SINUSES: Normal aeration, without mucosal inflammatory disease. There is patency of the bilateral maxillary infundibuli with normal uncinate processes, ethmoid bullae, and hiatus semilunaris. Normal bilateral middle turbinates. Normal bilateral inferior turbinates. There is a left sided nasal septal deviation, but without a nasal septal spur. There is patency of the bilateral nasal airways. The visualized osseous structures are normal. The visualized bilateral orbital contents are normal. CT/Sinus/Facial Bone IMPRESSION: Normal CT examination of the maxillofacial sinuses. Nasal septal deviation towards left side of midline. Electronically Signed: Camilo Hunt MD at 9:52 EDT ,
== END | disposition home or self-care (01) ==
PROVIDERS: PCP Internal Medicine; Referring Provider Internal Medicine; Visit Provider Internal Medicine
DX: J32.0 Chronic maxillary sinusitis (principal)
CPT/HCPCS: 70486